=== PATIENT | female | born 1955 | race Caucasian/White ===

== ENCOUNTER → 2016-07-17 | Outpatient (CLI) | payer BC ==
--- NOTE | 2016-07-17 16:30 | RADIOLOGY REPORT PS360 ---
ANKLE-LT-3 VIEWS HISTORY: LEFT ANKLE PAIN/SWELLING ORDERING PHYSICIAN: KAJAL WALKER APRN PATIENT AGE: 60 years COMPARISON: 06/10/2007 FINDINGS: No fracture or dislocation. No lytic or blastic change. There is normal mineralization.. The joint spaces are well-preserved. No significant degenerative/arthritic changes. No erosive changes evident. Mild soft tissue swelling laterally IMPRESSION: Soft tissue swelling otherwise negative
== END ==
LOC: RAD 15:58
DX: M25.572 Pain in left ankle and joints of left foot (principal); M25.472 Effusion, left ankle